=== PATIENT | female | born 1970 | race Caucasian/White ===

== ENCOUNTER → 2017-01-21 | Outpatient (CLI) | payer BC ==
[~2017-01-21] VITALS: Ht 167.6 cm; Wt 110.2 kg
[~2017-01-21] MED LIST: ADVIL200 MG PO; GLUCOPHAGE500 MG/TAB PO; NASONEX SPRAY17 GM NS; PHENTERMINE15 MG PO; ZYRTEC 10MG10 MG PO
[2017-01-21 08:43] VITALS: BP 122/78; PULSE 80
[2017-01-21 09:10] VITALS: BP 122/78; PULSE 80
[2017-01-21 09:30] VITALS: BP 122/78; PULSE 80
== END ==
LOC: LIGHT 09-17 18:50
DX: E78.4 Other hyperlipidemia (principal); E66.09 Other obesity due to excess calories; Z68.39 Body mass index [BMI] 39.0-39.9, adult

== ENCOUNTER → 2017-03-18 | Outpatient (CLI) | payer BC ==
[~2017-03-18] VITALS: Ht 167.6 cm; Wt 111.1 kg
[2017-03-18 08:38] VITALS: BP 110/90; PULSE 88
== END ==
LOC: LIGHT 12-03 12:13
DX: E78.4 Other hyperlipidemia (principal); E66.8 Other obesity; Z68.39 Body mass index [BMI] 39.0-39.9, adult

== ENCOUNTER → 2017-05-27 | Outpatient (CLI) | payer BC ==
[~2017-05-27] VITALS: Ht 167.6 cm; Wt 107.7 kg
[2017-05-27 08:52] VITALS: BP 105/64; PULSE 88
== END ==
LOC: LIGHT 04-22 14:19
DX: E78.5 Hyperlipidemia, unspecified (principal); E66.9 Obesity, unspecified; Z68.38 Body mass index [BMI] 38.0-38.9, adult; Z71.3 Dietary counseling and surveillance